=== PATIENT | female | born 1980 | race Caucasian/White ===

== ENCOUNTER → 2016-07-01 | Day surgery (SDC) | payer OTHER ==
[~2016-07-01] MED LIST: ALPRAZolam 0.25 MG TAB ONE; BACITRACIN OINT 1 EACH PACKET TOPICAL ONE; LIDOCAINE 1% INJ 10MG/ML (20 ML MDV) ONE; SODIUM BICARB 4% 5 ML VIAL (0.48 MEQ/ML) ONE
--- NOTE | 2016-07-01 15:42 | USB ---
EXAMINATION TYPE: US biopsy breast VAD LT, US breast aspiration single LT MG diagnostic mammo LT wo CAD, DATE OF EXAM: 07/01/2016 1:14 PM CLINICAL HISTORY: 35-year-old female with palpable left breast mass. TECHNIQUE: Ultrasound guided aspiration and core biopsy of left breast lesion. COMPARISON: Outside ultrasound 04/07/2016 FINDINGS: The procedure of ultrasound guided aspiration and core biopsy was explained to the patient. Benefits, alternatives, and risks were discussed. An informed consent was then obtained. The patient was placed in supine positioning for imaging and for the procedure. The overlying skin was prepped and draped in usual sterile fashion. Lidocaine buffered with bicarbonate was used as anesthetic into the skin and subcutaneous tissue up to area of concern in the 4:00 left breast. Under ultrasound guidance, a 18-gauge spinal needle was advanced into the lesion and aspiration yielded 0.75 mL of thick whitish material. This was labeled and sent to the lab for analysis. Subsequently, as residual lesion remained after the aspiration, decision was made to proceed with core biopsy. Under ultrasound guidance, a 13-gauge vacuum- assisted mammotome a leak biopsy gun was used to obtain 10 core samples. Following this, a coil clip was left in the lesion. Most if not all of the lesion was removed with the multiple biopsies. The patient tolerated the procedure well without any immediate complication. The patient was kept in the radiology department for short stay after the procedure and then discharged home in stable condition. Postprocedure mammogram shows coil clip in place but closer to the 6:00 position. IMPRESSION: Successful, uncomplicated ultrasound guided aspiration followed by core biopsy of palpable 4:00 left breast mass, full pathology results to follow. A galactocele is in the differential. Pathology Results: Benign BREAST, LEFT, ASPIRATE: FOAMY MACROPHAGES, DEGENERATED CELLULAR MATERIAL AND DEGENERATED EPITHELIAL CELLS WITH APOCRINE-LIKE FEATURES CONSISTENT WITH CYST CONTENTS. BREAST, LEFT, CORE BIOPSY: BENIGN BREAST SHOWING FEATURES CONSISTENT WITH RUPTURED CYST WALL AND ASSOCIATED PROMINENT HISTIOCYTE AND FOREIGN BODY GIANT CELL REACTION, CHRONIC INFLAMMATION, FIBROSIS AND PIGMENTED NON-REFRACTILE MATERIAL. Recommendation Follow up ultrasound of the left breast in 6 months. JEREMY
== END ==
LOC: RADUSWWP 11:46
PROVIDERS: ATTEND Surgery
DX: N61.0 Mastitis without abscess (principal); N60.32 Fibrosclerosis of left breast; N64.9 Disorder of breast, unspecified
CPT/HCPCS: 88305; 88173; 76942; 19000; 19083; G0206; A4648; J2001

== ENCOUNTER → 2016-10-18 | Outpatient (CLI) | payer OTHER ==
[2016-10-18 14:48] VITALS: BP 151/75; PULSE 60; TEMP 98.1; BMI 29.1
--- NOTE | 2016-10-18 16:31 | P.HPBAR ---
Bariatric H&P - History & Physicial H&P Date: 10/18/16 History & Physicial: Visit/CC: initial clinic visit Patient initial contact: Initial weight: Initial weight in pounds: Height: 5 ft 4 in Initial BMI: Last weight: Current weight: 108.545 kg Current weight in pounds: 239.30 Current BMI: 29.1 [place] body weight (based on NIH guidelines): 81.647 kg Excess body weight loss: The patient is a 36 year-old F who presents for Bariatric Assessment. The patient presents today for sleeve gastrectomy consultation. She's had issues with morbid obesity most of her life. Her current BMI is 41. She has complaints of GERD. And arthritis. Past Medical History Past Medical History: GERD/Reflux, Hypertension History of Any Multi-Drug Resistant Organisms: None Reported Past Surgical History: Breast Surgery, Section, Cholecystectomy, Orthopedic Surgery, Tubal Ligation Additional Past Surgical History / Comment(s): bilateral breast biopsies right ankle surgery c section x 3 Past Anesthesia/Blood Transfusion Reactions: No Reported Reaction Past Psychological History: No Psychological Hx Reported Smoking Status: Former smoker Past Alcohol Use History: None Reported Additional Past Alcohol Use History / Comment(s): quit smoking four years ago Past Drug Use History: None Reported Surgical - Exam Vital Signs Temp Pulse BP 98.1 F 60 151/75 10/18/16 14:42 10/18/16 14:42 10/18/16 14:42 - General well developed, no distress - Eyes PERRL - ENT normal pinna - Neck no masses - Respiratory normal expansion - Cardiovascular Rhythm: regular - Abdomen Abdomen: soft, non tender Bariatric Assessment & Plan Plan: I also discussed with patient has been regarding sleeve gastrectomy. I went over the risks and benefits of procedure. The patient wishes to try some weight loss medication. She will trial Tenuate. She will follow-up in one month for recheck. Bariatric Checklist Checklist: Plan: Checklist: EGD: 1. Hiatal hernia: 2. H. Pylori: HgbA1c: Vitamin D: Smoking: Former smoker Primary care physician referral: dr chavis Psychiatry clearance: Cardiology clearance: Sleep study: Diet journal: VTE risk score: VTE risk level: Rehab needs at discharge:
== END ==
LOC: BARWHC3 13:54
PROVIDERS: ATTEND Surgery
DX: E66.01 Morbid (severe) obesity due to excess calories (principal); Z98.84 Bariatric surgery status; Z87.891 Personal history of nicotine dependence
CPT/HCPCS: 99211

== ENCOUNTER 2016-11-05 11:58 | Day surgery (SDC) | payer OTHER ==
[2016-11-04 11:33] VITALS: BMI 39.4
[~2016-11-05 11:58] MED LIST changes: -ALPRAZolam 0.25 MG TAB ONE; -BACITRACIN OINT 1 EACH PACKET TOPICAL ONE; +LACTATED RINGERS 1,000 ML IV SCH; -LIDOCAINE 1% INJ 10MG/ML (20 ML MDV) ONE; -SODIUM BICARB 4% 5 ML VIAL (0.48 MEQ/ML) ONE
[2016-11-05 12:53] VITALS: RESP 18; TEMP 98.8
[2016-11-05] MEDS ORDERED: LIDOCAINE 1% INJ 10MG/ML (20 ML MDV) ONE (13:10)
[2016-11-05] MEDS ORDERED: GLYCOPYRROLATE 0.2 MG/ML 2 ML VIAL ONE (13:10)
[2016-11-05] MEDS ORDERED: PROPOFOL 10 MG/ML 20 ML VIAL IV ONE (13:10)
--- NOTE | 2016-11-05 13:12 | P.GSHP ---
History of Present Illness H&P Date: 11/05/16 Chief Complaint: GERD [id number] female who presents today for EGD. Patient's had issues with GERD. She's also had issues with morbid obesity. Her BMI is 40. Past Medical History Past Medical History: GERD/Reflux, Hypertension History of Any Multi-Drug Resistant Organisms: None Reported Past Surgical History: Breast Surgery, Section, Cholecystectomy, Orthopedic Surgery, Tubal Ligation Additional Past Surgical History / Comment(s): bilateral breast biopsies right ankle surgery c section x 3 Past Anesthesia/Blood Transfusion Reactions: No Reported Reaction Past Psychological History: No Psychological Hx Reported Smoking Status: Former smoker Past Alcohol Use History: None Reported Additional Past Alcohol Use History / Comment(s): quit smoking four years ago Past Drug Use History: None Reported - Past Family History Mother Family Medical History: No Reported History Medications and Allergies Home Medications Medication Instructions Recorded Confirmed Type Atenolol [Tenormin] 1 tab PO DAILY 10/18/16 11/05/16 History Allergies Allergy/AdvReac Type Severity Reaction Status Date / Time metoclopramide [From Reglan] Allergy Rash/Hives Verified 11/05/16 12:42 omeprazole Allergy Swelling Verified 11/05/16 12:42 Penicillins Allergy Rash/Hives Verified 11/05/16 12:42 sulfamethoxazole Allergy Rash/Hives Verified 11/05/16 12:42 [From Bactrim] trimethoprim [From Bactrim] Allergy Rash/Hives Verified 11/05/16 12:42 Surgical - Exam Vital Signs Temp Pulse Resp BP Pulse Ox 98.8 F 83 18 113/82 97 11/05/16 12:51 11/05/16 12:51 11/05/16 12:51 11/05/16 12:51 11/05/16 12:51 - General well developed, no distress - Eyes PERRL - ENT normal pinna - Neck no masses - Respiratory normal expansion - Cardiovascular Rhythm: regular - Abdomen Abdomen: soft, non tender Assessment and Plan Plan: GERD. We'll perform EGD.
--- NOTE | 2016-11-05 13:20 | P.OP ---
Date of Procedure: 11/05/16 Preoperative Diagnosis: GERD Postoperative Diagnosis: Mild antral gastritis Mild esophagitis Procedure(s) Performed: EGD Implants: Anesthesia: MAC Surgeon: Helder Allen Pathology: other (Antrum, esophagus) Condition: stable Disposition: PACU Indications for Procedure: Operative Findings: Description of Procedure: A shunt placed on the endoscopy table in the lateral position. She received IV sedation. The gastroscope some placed oropharynx passed in the esophagus and stomach. Scope then placed through the pylorus. The first and second portion of duodenum appeared normal. Scope was then brought back the antrum and this appeared mildly inflamed. A biopsies performed. Scope was unretroflexed and remainder stomach appeared normal. The GE junction is a 47 is. There was a minimal hiatal hernia. The distal esophagus. 5 inflamed a biopsies performed. The proximal esophagus appeared normal. Scope was withdrawn for patient.
[2016-11-05 13:41] VITALS: BP 113/74; PULSE 78
== END 2016-11-05 14:05 | disposition home or self-care (01) ==
LOC: ORWHC2ENDO 11:58
PROVIDERS: ATTEND Surgery
DX: K29.50 Unspecified chronic gastritis without bleeding (principal); B96.81 Helicobacter pylori [H. pylori] as the cause of diseases classified elsewhere; K21.0 Gastro-esophageal reflux disease with esophagitis; K20.0 Eosinophilic esophagitis; K44.9 Diaphragmatic hernia without obstruction or gangrene; I10 Essential (primary) hypertension; E66.01 Morbid (severe) obesity due to excess calories; Z68.41 Body mass index [BMI] 40.0-44.9, adult; Z87.891 Personal history of nicotine dependence; Z88.0 Allergy status to penicillin; Z88.2 Allergy status to sulfonamides; Z88.8 Allergy status to other drugs, medicaments and biological substances
CPT/HCPCS: 81025; 88305; 88342; 43239; J2001; J2704

== ENCOUNTER → 2016-11-15 | Outpatient (CLI) | payer OTHER ==
[2016-11-15 14:35] VITALS: BP 120/86; PULSE 92; RESP 14; TEMP 98.8; BMI 40.0
--- NOTE | 2016-11-15 14:37 | P.HPBAR ---
Bariatric H&P - History & Physicial H&P Date: 11/15/16 History & Physicial: Visit/CC: pre surgical visit, Patient initial contact: Initial weight: 108.545 kg Initial weight in pounds: 239.30 Height: 5 ft 4 in Initial BMI: 41.1 Last weight: Current weight: 105.778 kg Current weight in pounds: 233.20 Current BMI: 40.0 [place] body weight (based on NIH guidelines): 54.431 kg Excess body weight loss: 5.1% The patient is a 36 year-old F who presents for Bariatric Assessment. Patient presents for bariatric follow-up. Patient has been on 10 units this month. She denies any significant side effects from medication. She is also present 6 pounds since her last visit. She's had some minimal GERD which has improved while taking Tums when necessary. Past Medical History Past Medical History: GERD/Reflux, Hypertension History of Any Multi-Drug Resistant Organisms: None Reported Past Surgical History: Breast Surgery, Section, Cholecystectomy, Orthopedic Surgery, Tubal Ligation Additional Past Surgical History / Comment(s): bilateral breast biopsies right ankle surgery c section x 3 Past Anesthesia/Blood Transfusion Reactions: No Reported Reaction Past Psychological History: No Psychological Hx Reported Smoking Status: Former smoker Past Alcohol Use History: None Reported Additional Past Alcohol Use History / Comment(s): quit smoking four years ago Past Drug Use History: None Reported - Past Family History Mother Family Medical History: No Reported History Surgical - Exam Vital Signs Temp Pulse Resp BP 98.8 F 92 14 120/86 11/15/16 14:25 11/15/16 14:25 11/15/16 14:25 11/15/16 14:25 - General well developed, no distress - Eyes PERRL - Neck no masses - Cardiovascular Rhythm: regular - Abdomen Abdomen: soft, non tender Bariatric Assessment & Plan Plan: Morbid obesity. Patient has been taking Tenuate. Her Tenuate will be reordered for another 30 days. She'll follow-up in 2 months. Bariatric Checklist Checklist: Plan: Checklist: EGD: 1. Hiatal hernia: 2. H. Pylori: HgbA1c: Vitamin D: Smoking: Former smoker Primary care physician referral: dr chavis Psychiatry clearance: Cardiology clearance: Sleep study: Diet journal: VTE risk score: VTE risk level: Rehab needs at discharge:
== END ==
LOC: BARWHC3 13:53
PROVIDERS: ATTEND Surgery
DX: Z48.815 Encounter for surgical aftercare following surgery on the digestive system (principal); E66.01 Morbid (severe) obesity due to excess calories; Z87.891 Personal history of nicotine dependence; Z98.84 Bariatric surgery status
CPT/HCPCS: 99211

== ENCOUNTER → 2017-02-07 | Outpatient (CLI) | payer OTHER ==
[2017-02-07 14:01] VITALS: BP 142/94; PULSE 84; RESP 20; TEMP 98.4; BMI 38.0
--- NOTE | 2017-02-07 14:19 | P.HPBAR ---
Bariatric H&P - History & Physicial H&P Date: 02/07/17 History & Physicial: Visit/CC: pursuing sleeve Patient initial contact: Initial weight: 108.545 kg Initial weight in pounds: 239.30 Height: 5 ft 4 in Initial BMI: 41.1 Last weight: Current weight: 100.698 kg Current weight in pounds: 222.00 Current BMI: 38.0 [place] body weight (based on NIH guidelines): 54.431 kg Excess body weight loss: 14.5% The patient is a 36 year-old F who presents for Bariatric Assessment. Patient presents today for preoperative consultation or gastric sleeve. She has lost approximately 17 pounds since starting Tenuate. She has lost 11 pounds since her visit 2 months ago. She has not taken her medications for H. pylori secondary to ALLERGIC reaction to omeprazole. Past Medical History Past Medical History: GERD/Reflux, Hypertension Additional Past Medical History / Comment(s): EGD October 2016 showed H Pylori History of Any Multi-Drug Resistant Organisms: None Reported Past Surgical History: Breast Surgery, Section, Cholecystectomy, Orthopedic Surgery, Tubal Ligation Additional Past Surgical History / Comment(s): bilateral breast biopsies right ankle surgery c section x 3 Past Anesthesia/Blood Transfusion Reactions: No Reported Reaction Past Psychological History: No Psychological Hx Reported Smoking Status: Former smoker Past Alcohol Use History: None Reported Additional Past Alcohol Use History / Comment(s): quit smoking four years ago Past Drug Use History: None Reported - Past Family History Mother Family Medical History: No Reported History Surgical - Exam Vital Signs Temp Pulse Resp BP 98.4 F 84 20 142/94 02/07/17 13:55 02/07/17 13:55 02/07/17 13:55 02/07/17 13:55 - General well developed, no distress - Abdomen Abdomen: soft, non tender Bariatric Assessment & Plan Plan: Morbid obesity with BMI 38. Patient will be authorized for sleeve gastrectomy.. Patient will start Biaxin and Pepcid for treatment of H. pylori. She will follow-up in 8 weeks. Bariatric Checklist Checklist: Plan: Checklist: EGD: 1. Hiatal hernia: 2. H. Pylori: HgbA1c: Vitamin D: Smoking: Former smoker Primary care physician referral: dr chavis Psychiatry clearance: Cardiology clearance: Sleep study: Diet journal: VTE risk score: VTE risk level: Rehab needs at discharge:
== END | disposition home or self-care (01) ==
LOC: BARWHC3 13:16
PROVIDERS: ATTEND Surgery
DX: Z48.815 Encounter for surgical aftercare following surgery on the digestive system (principal); Z98.84 Bariatric surgery status; E66.01 Morbid (severe) obesity due to excess calories; Z68.38 Body mass index [BMI] 38.0-38.9, adult
CPT/HCPCS: 99211

== ENCOUNTER → 2017-05-30 | Outpatient (CLI) | payer OTHER ==
[2017-05-30 14:14] VITALS: BMI 40.1
== END | disposition home or self-care (01) ==
LOC: BARWHC3 08:48
PROVIDERS: ATTEND Surgery
DX: E66.01 Morbid (severe) obesity due to excess calories (principal)
CPT/HCPCS: 83013; 97804

== ENCOUNTER 2017-07-05 06:17 | Inpatient (IN) | payer OTHER ==
[~2017-07-05 06:17] MED LIST changes: +DEXAMETHASONE SOD PHOSPHATE 10 MG/ML 1 ML VIAL IV ONE; +ENOXAPARIN 40 MG/0.4 ML SYRINGE SQ ONE; -LACTATED RINGERS 1,000 ML IV SCH; +LIDOCAINE 1% 20 ML VIAL (10MG/ML) FOR IV START INTRADERMA PRN; +ONDANSETRON 4 MG/2 ML VIAL IVP ONE; +SCOPOLAMINE 1.5MG/72HR PATCH TRANSDERM ONE; +ceFAZolin IN SWFI 2 GM/20 ML SYRINGE IVP ONE
[2017-07-05] MEDS: LACTATED RINGERS 1,000 ML IV SCH (06:53)
[2017-07-05] MEDS ORDERED: MIDAZOLAM 2 MG/2 ML VIAL IVP ONE (07:06)
[2017-07-05] MEDS ORDERED: METHYLENE BLUE IRRIGATION ONE ×2 (07:48)
[2017-07-05] MEDS ORDERED: WATER IRRIGATION ONE ×2 (07:48)
[2017-07-05] MEDS ORDERED: DEXTROSE 5% IRRIGATION ONE ×2 (07:48)
--- NOTE | 2017-07-05 07:48 | P.GSHP ---
History of Present Illness H&P Date: 07/05/17 Chief Complaint: Morbid Obesity, BMI 39 Is a 36-year-old female who presents today for laparoscopic sleeve gastrectomy. Patient has had lifetime problems obesity. Her BMI is 39. Patient is where the surgery including conversion to open procedure and injury to the stomach liver spleen vagotomy dysphagia recurrent GERD symptoms as well as issues of gastric staple line such as bleeding, scarring and Past Medical History Past Medical History: GERD/Reflux, Hypertension Additional Past Medical History / Comment(s): Hx H Pylori History of Any Multi-Drug Resistant Organisms: None Reported Past Surgical History: Breast Surgery, Section, Cholecystectomy, Orthopedic Surgery, Tubal Ligation Additional Past Surgical History / Comment(s): bilateral breast biopsies,right ankle surgery,c section x 3 Past Anesthesia/Blood Transfusion Reactions: No Reported Reaction Additional Past Anesthesia/Blood Transfusion Reaction / Comment(s): no hx blood transfusion Smoking Status: Former smoker - Past Family History Mother Family Medical History: No Reported History Additional Family Medical History / Comment(s): hemochromatosis Medications and Allergies Home Medications Medication Instructions Recorded Confirmed Type ALPRAZolam [Xanax] 0.5 mg PO TID PRN 05/16/17 07/05/17 History Oxymetazoline 0.05% Nasl [place] 2 spray EA NOSTRIL BID 06/28/17 07/05/17 History [Afrin 0.05% Nasal [place]] Fluticasone Nasal [place] [Flonase 2 spr EA NOSTRIL DAILY 07/05/17 07/05/17 History Nasal [place]] Allergies Allergy/AdvReac Type Severity Reaction Status Date / Time metoclopramide [From Reglan] Allergy Rash/Hives Verified 07/05/17 06:35 omeprazole Allergy Swelling Verified 07/05/17 06:35 Penicillins Allergy Rash/Hives Verified 07/05/17 06:35 sulfamethoxazole Allergy Rash/Hives Verified 07/05/17 06:35 [From Bactrim] trimethoprim [From Bactrim] Allergy Rash/Hives Verified 07/05/17 06:35 Surgical - Exam Vital Signs Temp Pulse Resp BP Pulse Ox 98.7 F 96 20 124/90 98 07/05/17 06:50 07/05/17 06:50 07/05/17 06:50 07/05/17 06:50 01/23/18 06:50 - General well developed, no distress - Eyes PERRL - ENT normal pinna, normal nares - Neck no masses - Respiratory normal expansion - Cardiovascular Rhythm: regular - Abdomen Abdomen: soft, non tender Assessment and Plan Assessment: Morbid Obesity with BMI 39. Patient will undergo laparoscopic sleeve gastrectomy.
[2017-07-05] MEDS ORDERED: NEOSTIGMINE 1 MG/ML 10 ML VIAL ONE (07:57)
[2017-07-05] MEDS ORDERED: ROCURONIUM BROMIDE 10 MG/ML 10 ML VIAL IV ONE (07:57)
[2017-07-05] MEDS ORDERED: PROPOFOL 10 MG/ML 20 ML VIAL IV ONE ×2 (07:57)
[2017-07-05] MEDS ORDERED: MIDAZOLAM 2 MG/2 ML VIAL ONE (07:57)
[2017-07-05] MEDS ORDERED: fentaNYL (PF) 50 MCG/ML 2 ML AMP ONE (07:57)
[2017-07-05] MEDS ORDERED: GLYCOPYRROLATE 0.2 MG/ML 2 ML VIAL ONE (07:57)
[2017-07-05] MEDS ORDERED: LIDOCAINE 1% INJ 10MG/ML (20 ML MDV) ONE (07:57)
[2017-07-05] MEDS ORDERED: HYDROmorphone (PF) 1 MG/ML ONE (07:57)
[2017-07-05] MEDS ORDERED: BUPIVACAINE (PF) 0.25% 30 ML VIAL SQ ONE (08:26)
[2017-07-05] MEDS ORDERED: LACTATED RINGERS 1,000 ML IV ONE (08:44)
[2017-07-05] MEDS ORDERED: NALOXONE 0.4 MG/ML 1 ML VIAL IV PRN (09:22)
--- NOTE | 2017-07-05 09:43 | P.OP ---
Date of Procedure: 07/05/17 Preoperative Diagnosis: Morbid obesity, BMI 39 Postoperative Diagnosis: Morbid obesity Procedure(s) Performed: Laparoscopic sleeve gastrectomy Laparoscopic repair of hiatal hernia Anesthesia: JANA Surgeon: Helder Allen Estimated Blood Loss (ml): 10 Pathology: other (Stomach) Condition: stable Disposition: PACU Description of Procedure: The patient was placed on the operating room table in the supine position. She received general anesthesia and then was placed in dorsal lithotomy position. Her abdomen was prepped and draped in sterile fashion. The skin incision sites were anesthetized 1% local Xylocaine. And then the skin was incised with an 11 blade in the left lateral position. Using a blade less trocar under direct visualization the peritoneal cavity was entered. The abdomen was insufflated and then a 5 mm laparoscope was placed into the peritoneal cavity. A 5 mm trocar was placed in the right epigastric, and right lateral position. A 15 mm trocar was placed in the supra-umbilical position and another 5 mm trocar was placed in the left lateral position. The left lateral lobe of the liver was retracted. The stomach was visualized. The greater curvature of the stomach was then dissected using the Harmonic scissors. The dissection occurred approximately 5 cm from the pylorus to the level of the left elmira. There was a hiatal hernia seen. The left and right elmira was then dissected using Harmonic scissors and then the crural defect was closed using 2-0 Ethibond suture. At this point a 40-Israeli bougie dilator was placed the oropharynx and passed into the esophagus and into the stomach by the ROLLER INSPECTOR. The sleeve gastrectomy was performed by using the powered echelon stapler with a seam guard buttress material. Sequential firings of the stapler were performed. The gastric remnant was then brought out through the 15 mm trocar site. The dilator was withdrawn. And a orogastric tube was replaced into the stomach. The stomach was insufflated with 200 mL of methylene blue normal saline. There was no evidence of extravasation. The abdomen was irrigated there is no bleeding seen. The Ruslan-Tim device was used to close the 15 mm trocar with 0 Vicryl. Skin was closed with interrupted 3-0 Monocryl sutures once the trochars withdrawn. Dermabond dressing was applied. Patient was sent to recovery in stable condition.
[2017-07-05] MEDS: diphenhydrAMINE 50 MG/ML 1 ML VIAL IVP ONE ×2 (09:45→10:51)
[2017-07-05] MEDS: HYDROmorphone 0.5 MG/0.5 ML SYRINGE IVP PRN ×5 (09:55→11:40)
[2017-07-05] MEDS: KETOROLAC 30 MG/ML 1 ML VIAL IVP SCH ×2 (11:17→20:10)
[2017-07-05] MEDS: HYDROmorphone 4 MG/ML 1 ML SYRINGE IVP ONE ×3 (12:18→13:40)
[2017-07-05] MEDS: HYDROmorphone 2 MG/ML 1 ML SYRINGE IVP PRN ×4 (14:04→22:17)
[2017-07-05] MEDS: ONDANSETRON 4 MG/2 ML VIAL IVP PRN (14:42)
[2017-07-05] MEDS: 0.9% NACL WITH KCL 20 MEQ/L 1,000 ML IV SCH ×2 (15:44→22:22)
[2017-07-05] MEDS: diphenhydrAMINE 50 MG/ML 1 ML VIAL IVP PRN ×2 (16:11→22:19)
[2017-07-05] MEDS: ALBUTEROL NEBULIZED 2.5 MG/3 ML INHALATION SCH ×3 (16:18→20:37)
[2017-07-05 17:23] VITALS: BMI 39.0
[2017-07-05] MEDS ORDERED: ALPRAZolam 0.5 MG TAB PO PRN (21:47)
[2017-07-05 22:53] LABS: ALT 110 U/L (9-52); AST 107 U/L (14-36); Alkaline Phosphatase 47 U/L (38-126); Anion Gap 13 mmol/L; Blood Urea Nitrogen 20 mg/dL (7-17); Calcium 8.6 mg/dL (8.4-10.2); Carbon Dioxide 24 mmol/L (22-30); Chloride 104 mmol/L (98-107); Glucose 113 mg/dL (74-99); Sodium 141 mmol/L (137-145); Total Bilirubin 0.4 mg/dL (0.2-1.3); Total Protein 6.5 g/dL (6.3-8.2)
[2017-07-06] MEDS ORDERED: HYDROmorphone 2 MG/ML 1 ML SYRINGE ONE
[2017-07-06] MEDS ORDERED: KETOROLAC 30 MG/ML 1 ML VIAL ONE
[2017-07-06 04:25] LABS: Potassium 4.1 mmol/L (3.5-5.1)
[2017-07-06] MEDS: HYDROmorphone 2 MG/ML 1 ML SYRINGE IVP PRN ×3 (04:41→14:45)
[2017-07-06] MEDS: diphenhydrAMINE 50 MG/ML 1 ML VIAL IVP PRN (04:42)
[2017-07-06] MEDS: 0.9% NACL WITH KCL 20 MEQ/L 1,000 ML IV SCH (04:46)
[2017-07-06] MEDS: KETOROLAC 30 MG/ML 1 ML VIAL IVP SCH ×4 (05:06→19:16)
[2017-07-06] MEDS: ALBUTEROL NEBULIZED 2.5 MG/3 ML INHALATION SCH ×4 (07:51→20:02)
[2017-07-06] MEDS ORDERED: 0.9% NACL WITH KCL 20 MEQ/L 1,000 ML IV SCH (08:00)
[2017-07-06 08:15] LABS: Anion Gap 9 mmol/L; Blood Urea Nitrogen 17 mg/dL (7-17); Calcium 8.3 mg/dL (8.4-10.2); Carbon Dioxide 25 mmol/L (22-30); Chloride 107 mmol/L (98-107); Magnesium 1.7 mg/dL (1.6-2.3); Phosphorus 3.4 mg/dL (2.5-4.5); Potassium 4.1 mmol/L (3.5-5.1); Sodium 141 mmol/L (137-145)
--- NOTE | 2017-07-06 08:44 | CONS ---
CONSULTATION DATE OF SERVICE: 07/05/2017. REASON FOR CONSULTATION: Advice regarding hypertension and multiple other medical issues requested by Dr. Allen. HISTORY OF PRESENT ILLNESS: This is a 36-year-old woman with a past medical history of GERD, hypertension, history of H-pylori being followed by Dr. Joseph in the outpatient setting. Underwent laparoscopic sleeve gastrectomy as well as laparoscopic repair of hiatal hernia by Dr. Allen. There is no history of fever or rigors. No history of headache, loss of consciousness. No history of chest pain, palpitations, or melena at this time. PAST MEDICAL HISTORY: History of GERD, hypertension, history H pylori, history of breast surgery, history of cholecystectomy, history of anxiety. MEDICATIONS: 1. Oxymetazoline nasal spray 2 sprays b.i.d. 2. Flonase 2 sprays daily. 3. Xanax 0.5 t.i.d. p.r.n. ALLERGIES: REGLAN, OMEPRAZOLE, PENICILLINS, BACTRIM. FAMILY HISTORY: History of hypertension, hyperlipidemia, history of hemochromatosis. SOCIAL HISTORY: Previous history of smoking. No history of alcohol intake. REVIEW OF SYSTEMS: ENT: No diminished hearing or vision. CARDIOVASCULAR: As mentioned earlier. RESPIRATORY: As mentioned earlier. GI: No nausea. : No dysuria. NERVOUS SYSTEM: No numbness or weakness. ALLERGY/IMMUNOLOGY: No asthma or hayfever. MUSCULOSKELETAL: As mentioned earlier. HEMATOLOGY/ONCOLOGY: No history of anemia. ENDOCRINE: No history of diabetes or hypothyroidism. CONSTITUTIONAL: As mentioned earlier. DERMATOLOGY: As mentioned earlier. PSYCHIATRY: As mentioned earlier. PHYSICAL EXAM: Patient is alert and oriented x3. Pulse is 99, blood pressure 150/90, respiration 18, temperature 98.7, pulse ox 97% on 2 L. HEENT: Oral mucosa moist. Neck is no jugular venous distention. No carotid bruit. No lymph node enlargement. CARDIOVASCULAR SYSTEM: S1, S1. No S3, no S4. RESPIRATORY: Breath sounds diminished at the bases. No rhonchi. No crackles. ABDOMEN: Soft, obese, nontender. Status post surgery. No mass palpable. LEGS: No edema, no swelling.. NERVOUS SYSTEM: Higher functions as mentioned earlier. Moves all 4 limbs, no focal motor deficits. LYMPHATICS: No lymph node enlargement in the neck or axillae. SKIN: No ulcer, rash, bleeding. SOCIAL HISTORY: The patient is complaining of chest pain and reported chest pain as well as shoulder pain also, status post surgery. LABS: Not available. ASSESSMENT: 1. Status post laparoscopic sleeve gastrectomy. 2. History of gastroesophageal reflux disease. 3. Hypertension. 5. History of section. 6. History of cholecystectomy. 7. History of anxiety. 8. Remote history of nicotine dependence. 9. FULL CODE. RECOMMENDATION: In this 36-year-old woman who presented with multiple complex medical issues, will monitor the patient closely. Continue with the current management and symptomatic treatment. Otherwise, I would also recommend DVT prophylaxis, incentive spirometry. Resume the home medications including Lasix 80. Prognosis guarded because of multiple complex medical issues. Further recommendations to follow. MMODL / IJN: [id number] / MTDD
[2017-07-06 08:51] LABS: HCT 33.6 % (34.0-46.0); MCH 31.3 pg (25.0-35.0); MCHC 32.7 g/dL (31.0-37.0); MCV 95.7 fL (80.0-100.0); Mean Platelet Volume 7.6; Platelet Count 239 k/uL (150-450); RBC 3.51 m/uL (3.80-5.40); RDW 12.9 % (11.5-15.5); WBC 8.8 k/uL (3.8-10.6)
[2017-07-06] MEDS ORDERED: OXYMETAZOLINE 0.05% NASL SPRAY 1 SPRAY BOTTLE EA NOSTRIL SCH (09:00)
[2017-07-06] MEDS ORDERED: OXYMETAZOLINE 0.05% NASL SPRAY 1 SPRAY BOTTLE EA NOSTRIL PRN (09:00)
[2017-07-06] MEDS ORDERED: HYOSCYAMINE ORAL DROPS 1.875 MG/15 ML BOTTLE PO PRN (09:11)
--- NOTE | 2017-07-06 09:21 | P.PN ---
<Shahida Rios - Last Filed: 07/06/17 16:03> Subjective Progress Note Date: 07/06/17 36-year-old female seen and examined at bedside. Patient reports experiencing midepigastric "spasm-like feeling". Sitting up in bed talkative appears in no acute distress postop July 05 laparoscopic sleeve gastrectomy, repair of hiatal hernia for morbid obesity BMI 39 labs were reviewed sats are 96% on room air heart rate in the 90s Objective - Vital Signs Vital signs: Vital Signs Temp 97.8 F 07/06/17 02:09 Pulse 90 07/06/17 08:04 Resp 18 07/06/17 07:55 BP 150/83 07/06/17 02:09 Pulse Ox 96 07/06/17 07:55 Intake & Output 07/05/17 07/06/17 07/06/17 18:59 06:59 18:59 Intake Total 1351 1725 Output Total 10 Balance 1341 1725 Weight 103.3 kg Intake: IV 1351 Intake, IV Titration 1725 Amount 0.9% NaCl with KCl 20 Meq 1725 /l 1,000 ml @ 150 mls/hr IV .Q6H40M [facility] Rx#: [id number] Output: Estimated Blood Loss 10 Other: Voiding Method Toilet # Voids 2 - Exam Physical exam 36-year-old female sitting up in bed pleasant cooperative oriented 3 appears in no acute distress Lungs adequate air movement bilaterally on room air sats are 96% no cough noted no wheezing Heart S1-S2 audible regular denying chest pain no murmur Abdomen soft obese surgical incision sites dressings dry nondistended surgical tenderness appropriate belching not passing gas rectally states urinating no difficulty no nausea no vomiting Extremities Venodyne's on to the bilateral lower extremities - Labs CBC & Chem 7: 07/06/17 07:18 07/06/17 07:18 Labs: Abnormal Lab Results - Last 24 Hours (Table) 07/05/17 07/06/17 07/06/17 Range/Units 22:11 07:18 07:18 RBC 3.51 L (3.80-5.40) m/uL Hgb 11.0 L (11.4-16.0) gm/dL Hct 33.6 L (34.0-46.0) % BUN 20 H (7-17) mg/dL Glucose 113 H (74-99) mg/dL Calcium 8.3 L (8.4-10.2) mg/dL AST 107 H (14-36) U/L ALT 110 H (9-52) U/L Assessment and Plan Assessment: Impression Morbid obesity BMI 39 History of esophageal reflux disease Hypertension essential Postop laparoscopic sleeve gastrectomy for morbid obesity with repair of hiatal hernia done on July 05 Plan Follow-up on upper GI study pending Continue postop surgical course Pain control Dietitian consult pending Nothing by mouth diet except ice chips will address as indicated after upper GI DVT and GI prophylaxis Monitor heart rate address as indicated Progress note dictated for dr jolley The above impression and plan of care have been discussed and directed by signing physician. Shahida Rios nurse practitioner acting as scribe for signing physician. <Helder Jolley - Last Filed: 07/06/17 16:45> Objective - Vital Signs Vital signs: Vital Signs Temp 98.0 F 07/06/17 07:00 Pulse 99 07/06/17 16:29 Resp 15 07/06/17 15:38 BP 135/90 07/06/17 15:00 Pulse Ox 100 07/06/17 15:00 Intake & Output 07/05/17 07/06/17 07/06/17 18:59 06:59 18:59 Intake Total 1351 1725 1550 Output Total 10 Balance 1341 1725 1550 Weight 103.3 kg 103.3 kg Intake: IV 1351 Intake, IV Titration 1725 1350 Amount 0.9% NaCl with KCl 20 Meq 300 /l 1,000 ml @ 100 mls/hr IV .BY DURATION [facility] Rx#: [id number] 0.9% NaCl with KCl 20 Meq 1725 1050 /l 1,000 ml @ 150 mls/hr IV .Q6H40M [facility] Rx#: [id number] Oral 200 Output: Estimated Blood Loss 10 Other: Voiding Method Toilet Toilet # Voids 2 1 - Labs CBC & Chem 7: 07/06/17 07:18 07/06/17 07:18 Labs: Abnormal Lab Results - Last 24 Hours (Table) 07/05/17 07/06/17 07/06/17 Range/Units 22:11 07:18 07:18 RBC 3.51 L (3.80-5.40) m/uL Hgb 11.0 L (11.4-16.0) gm/dL Hct 33.6 L (34.0-46.0) % BUN 20 H (7-17) mg/dL Glucose 113 H (74-99) mg/dL Calcium 8.3 L (8.4-10.2) mg/dL AST 107 H (14-36) U/L ALT 110 H (9-52) U/L Assessment and Plan Plan: Patient still has some complaints of headache and poor oral intake. On exam her vital signs are stable. Her abdomen soft. Patiently discharged home tomorrow.
--- NOTE | 2017-07-06 11:08 | FL ---
EXAMINATION TYPE: FL UGI DATE OF EXAM: 07/06/2017 LIMITED UGI: CLINICAL HISTORY: Morbid Obesity and hiatal hernia, status post gastric sleeve surgery yesterday. TECHNIQUE: Limited UGI-esophagram is performed utilizing 20oz of Omnipaque 350. A total of 71 second s of fluoroscopic time was utilized during procedure. 17 spot images are saved during procedure. COMPARISON: None. FINDINGS: The patient swallowed contrast without difficulty or delay. Esophageal peristalsis and mo tility are within normal limits. There is good flow of contrast along the diaphragmatic hiatus into proximal stomach. Proximal stomach pouch is slightly more prominent than typical. There is mild to mi nimal delay in flow at proximal anastomosis of the sleeve. There is mild delay flow through sleeve wh ich otherwise is felt within normal limits.. Mild to moderate delay in flow at distal anastomosis of sleeve into duodenal sweep. Patient remains asymptomatic throughout procedure. No cinthia extravasation to suggest leak is seen. Cholecystectomy clips are incidentally noted. IMPRESSION: No evidence of leak or significant obstruction status post recent gastric sleeve surgery. No persistent hiatal hernia is evident.
[2017-07-06] MEDS ORDERED: HYDROcodone/APAP 15 ML SOLUTION PO PRN (11:10)
[2017-07-06] MEDS: ENOXAPARIN 40 MG/0.4 ML SYRINGE SQ SCH ×2 (11:11→22:40)
[2017-07-06] MEDS: PANTOPRAZOLE 40 MG/10 ML VIAL IV SCH (11:11)
[2017-07-06] MEDS: FLUTICASONE 50MCG/SPRAY NASAL 16GM EA NOSTRIL SCH (11:12)
[2017-07-06 11:20] LABS: Band Neutrophils % 1 %; Eosinophils # (M) 0.09 k/uL (0-0.7); Lymphocytes # (M) 3.34 k/uL (1.0-4.8); Monocytes # (M) 0.44 k/uL (0-1.0); Neutrophils % (M) 55 %; Nucleated Red Blood Cells 0 /100 WBC (0-0); Total Cells Counted 100
[2017-07-06] MEDS: 1: MVI, ADULT NO.4 WITH VIT K 10 ML, THIAMINE 100 MG, FOLIC ACID 1 MG, POTASSIUM CHLORID IV SCH ×12 (12:19→22:39)
[2017-07-06] MEDS: HYDROcodone/APAP 7.5-325MG 1 EACH TAB PO PRN ×2 (16:50→22:39)
--- NOTE | 2017-07-06 17:25 | PN ---
PROGRESS NOTE DATE OF SERVICE: 07/06/2017 This 36-year-old woman who was admitted after sleeve gastrectomy is improving significantly. No chest pain. No palpitations. The pain is better. The patient passed all her upper GI series. PHYSICAL EXAMINATION: Alert and oriented x3. Pulse 120, blood pressure 120/80 respiration 18, temperature 98 degrees, pulse ox 99% on 2 L. HEENT: Conjunctivae normal. NECK: No jugular venous distention. CARDIOVASCULAR SYSTEM: S1, S2 muffled. RESPIRATORY SYSTEM: Breath sounds diminished at the bases. A few rhonchi. No crackles. ABDOMEN: Soft. Status post surgery. LEGS: No edema. No swelling. NERVOUS SYSTEM: No focal deficit. LABS: WBC 8.8, hemoglobin 11. ASSESSMENT: 1. Status post laparoscopic sleeve gastrectomy. 2. History of gastroesophageal reflux disease. 3. Hypertension. 4. History of section. 5. History of cholecystectomy. 6. History of anxiety. 7. Remote history of nicotine dependence. 8. FULL CODE. RECOMMENDATIONS AND DISCUSSION: I recommend to continue current medication, continue symptomatic treatment. Incentive spirometry. DVT prophylaxis. Closely follow with Surgery. Further recommendations to follow. MMODL / IJN: [id number] /
[2017-07-06] MEDS: ONDANSETRON 4 MG/2 ML VIAL IVP PRN (19:16)
[2017-07-07] MEDS: KETOROLAC 30 MG/ML 1 ML VIAL IVP SCH ×2 (01:27→07:10)
[2017-07-07] MEDS: LACTATED RINGERS 1,000 ML IV SCH ×2 (01:27→06:10)
[2017-07-07] MEDS: 1: MVI, ADULT NO.4 WITH VIT K 10 ML, THIAMINE 100 MG, FOLIC ACID 1 MG, POTASSIUM CHLORID IV SCH ×6 (06:10)
[2017-07-07] MEDS: ONDANSETRON 4 MG/2 ML VIAL IVP PRN (07:17)
[2017-07-07] MEDS: ALBUTEROL NEBULIZED 2.5 MG/3 ML INHALATION SCH ×2 (08:00→11:34)
[2017-07-07 08:50] VITALS: BP 128/87; PULSE 93; RESP 14; TEMP 98.2
[2017-07-07] MEDS: PANTOPRAZOLE 40 MG/10 ML VIAL IV SCH (08:53)
[2017-07-07] MEDS: ENOXAPARIN 40 MG/0.4 ML SYRINGE SQ SCH (08:53)
[2017-07-07] MEDS: FLUTICASONE 50MCG/SPRAY NASAL 16GM EA NOSTRIL SCH (08:54)
--- NOTE | 2017-07-07 10:15 | P.DS ---
Providers Date of admission: 07/05/17 06:17 Expected date of discharge: 07/07/17 Attending physician: Helder Allen Consults: 07/05/17 09:22 Consult Physician Routine Consulting Provider: Roderick Butt Consult Reason/Comments: medical management Do you want consulting provider notified?: Yes Primary care physician: SHANDA Hospital Course: 36-year-old female admitted on the day of admission to undergo an elective laparoscopic sleeve gastrectomy for morbid obesity BMI 39 with a repair of a hiatal hernia was ambulatory on the unit. Medication effective for pain control surgical incisions no evidence of redness abdomen soft nontender no nausea no vomiting tolerating a bariatric clear diet anxious to be discharged home afebrile sats on room air 99% patient was felt to be hemodynamically stable and appropriate proceed with a discharge to home Impression Morbid obesity BMI 39 History of esophageal reflux disease Hypertension essential Postop laparoscopic sleeve gastrectomy for morbid obesity with repair of hiatal hernia done on July 05 The above impression and plan of care have been discussed and directed by signing physician. Shahida Rios nurse practitioner acting as scribe for signing physician. Plan - Discharge Summary Discharge Rx Participant: Yes New Discharge Prescriptions: New Bisacodyl [Dulcolax] 5 mg PO DAILY PRN #10 tablet.dr PRN Reason: Constipation Ondansetron Odt [Zofran Odt] 4 mg PO Q8HR PRN #9 tab PRN Reason: Nausea Simethicone 40 mg/0.6 ml Drops [Mylicon Drops] 40 mg PO PCHS PRN #30 ml PRN Reason: Gas HYDROcodone/APAP 7.5-325MG [[place] 7.5-325] 1 each PO Q6H PRN #20 tab PRN Reason: Pain Continue ALPRAZolam [Xanax] 0.5 mg PO TID PRN PRN Reason: Anxiety Oxymetazoline 0.05% Nasl [place] [Afrin 0.05% Nasal [place]] 2 spray EA NOSTRIL BID Fluticasone Nasal [place] [Flonase Nasal [place]] 2 spr EA NOSTRIL DAILY Discharge Medication List ALPRAZolam [Xanax] 0.5 mg PO TID PRN 05/16/17 [History] Oxymetazoline 0.05% Nasl [place] [Afrin 0.05% Nasal [place]] 2 spray EA NOSTRIL BID 06/28/17 [History] Fluticasone Nasal [place] [Flonase Nasal [place]] 2 spr EA NOSTRIL DAILY 07/05/17 [ History] Bisacodyl [Dulcolax] 5 mg PO DAILY PRN #10 tablet. 07/07/17 [Rx] HYDROcodone/APAP 7.5-325MG [[place] 7.5-325] 1 each PO Q6H PRN #20 tab 07/07/17 [ Rx] Ondansetron Odt [Zofran Odt] 4 mg PO Q8HR PRN #9 tab 07/07/17 [Rx] Simethicone 40 mg/0.6 ml Drops [Mylicon Drops] 40 mg PO PCHS PRN #30 ml [Rx] Follow up Appointment(s)/Referral(s): Helder Allen MD [STAFF PHYSICIAN] - 1 Week Activity/Diet/Wound Care/Special Instructions: bariatric clear diet No tub bath for six weeks. Shower daily. No lifting over 4 pounds for the next 6 weeks.. May use ice packs to surgical site. No driving while taking narcotic for pain. Discharge Disposition: HOME SELF-CARE
[2017-07-07] MEDS: HYDROcodone/APAP 7.5-325MG 1 EACH TAB PO PRN (10:22)
--- NOTE | 2017-07-07 21:59 | PN ---
PROGRESS NOTE DATE OF SERVICE: 07/07/2017 This 36-year-old woman who was admitted with sleeve gastrectomy is improving significantly. No chest pain. No palpitations. No fever. LFTs were mildly elevated. EXAM: Alert and oriented x3. Pulse 89, blood pressure 127/70, respirations 16, temperature 98.1, pulse ox 94% on room air. HEENT: Conjunctivae normal. NECK: No jugular venous distention. CARDIOVASCULAR: S1, S2 muffled. RESPIRATORY: Breath sounds diminished in the bases. No rhonchi. No crackles. ABDOMEN: Soft, status post surgery. LEGS: No edema. NERVOUS SYSTEM: Nonfocal. LABS: WBC 8.1, hemoglobin is 11. AST, ALT noted. ASSESSMENT: 1. Status post laparoscopic sleeve gastrectomy. 2. History of gastroesophageal reflux disease. 3. Hypertension. 4. Increased AST, ALT. 5. History of section. 6. History of cholecystectomy. 7. History of anxiety. 8. Remote history of nicotine dependence. 9. FULL CODE. RECOMMENDATIONS AND DISCUSSION: Recommend to continue with current medical management and symptomatic treatment. Recommend close followup with the primary physician regarding the abnormal labs; otherwise, I discussed with the patient, who understands. Further recommendations to follow. MMODL / IJN: [id number] /
== END 2017-07-07 12:45 | disposition home or self-care (01) | DRG 621 ==
LOC: 2ORMAIN 06:17 → 3SUR 09:19
PROVIDERS: ADMIT Surgery; ATTEND Surgery
PROC: 0BQT4ZZ Repair Diaphragm, Percutaneous Endoscopic Approach (ICD-10-PCS; 2017-07-05)
PROC: 0DB64Z3 Excision of Stomach, Percutaneous Endoscopic Approach, Vertical (ICD-10-PCS; principal; 2017-07-05 08:00)
DX: E66.01 Morbid (severe) obesity due to excess calories (principal); F41.9 Anxiety disorder, unspecified; I10 Essential (primary) hypertension; K21.9 Gastro-esophageal reflux disease without esophagitis; K44.9 Diaphragmatic hernia without obstruction or gangrene; R07.9 Chest pain, unspecified; M25.519 Pain in unspecified shoulder; Z68.39 Body mass index [BMI] 39.0-39.9, adult; Z90.49 Acquired absence of other specified parts of digestive tract; Z87.891 Personal history of nicotine dependence; Z79.899 Other long term (current) drug therapy; Z88.1 Allergy status to other antibiotic agents; Z88.0 Allergy status to penicillin; Z88.2 Allergy status to sulfonamides; Z88.8 Allergy status to other drugs, medicaments and biological substances; Z82.49 Family history of ischemic heart disease and other diseases of the circulatory system
CPT/HCPCS: 74240; 80051; 80053; 82310; 82565; 83735; 84100; 84520; 85025; 88307; 88341; 88342; 94640; 94760; 94762

== ENCOUNTER → 2017-07-18 | Outpatient (CLI) | payer OTHER ==
[2017-07-18 14:29] VITALS: BMI 37.0
[2017-07-18 15:12] VITALS: BP 132/82; PULSE 82; TEMP 97.7
--- NOTE | 2017-07-18 15:37 | P.HPBAR ---
Bariatric H&P - History & Physicial H&P Date: 07/18/17 History & Physicial: Visit/CC: two week follow up Patient initial contact: Initial weight: 108.545 kg Initial weight in pounds: 239.30 Height: 5 ft 4 in Initial BMI: 41.1 Last weight: Current weight: 97.976 kg Current weight in pounds: 216.00 Current BMI: 37.0 [place] body weight (based on NIH guidelines): 54.431 kg Excess body weight loss: 19.5% The patient is a 36 year-old F who presents for Bariatric Assessment. Patient presents today for postoperative follow-up. She underwent sleeve gastrectomy approximately 2 weeks ago. She is doing quite well. She lost approximately 21 pounds since surgery. Past Medical History Past Medical History: GERD/Reflux, Hypertension Additional Past Medical History / Comment(s): Hx H Pylori History of Any Multi-Drug Resistant Organisms: None Reported Past Surgical History: Bariatric Surgery, Breast Surgery, Section, Cholecystectomy, Orthopedic Surgery, Tubal Ligation Additional Past Surgical History / Comment(s): bilateral breast biopsies,right ankle surgery,c section x 3 sleeve gastrectomy 07-05-17 Past Anesthesia/Blood Transfusion Reactions: No Reported Reaction Additional Past Anesthesia/Blood Transfusion Reaction / Comm: no hx blood transfusion Past Psychological History: Anxiety Smoking Status: Former smoker Past Alcohol Use History: None Reported Additional Past Alcohol Use History / Comment(s): quit smoking 2012,smoked approx >10 yrs,1ppd Past Drug Use History: None Reported - Past Family History Mother Family Medical History: No Reported History, Hyperlipidemia, Hypertension Additional Family Medical History / Comment(s): hemochromatosis Father Family Medical History: Hyperlipidemia, Myocardial Infarction ([place]) Surgical - Exam Vital Signs Temp Pulse BP 97.7 F 82 132/82 07/18/17 15:09 07/18/17 15:09 07/18/17 15:09 - General well developed, no distress - Eyes PERRL - ENT normal pinna - Neck no masses - Respiratory normal expansion - Cardiovascular Rhythm: regular - Abdomen Abdomen: soft, non tender Bariatric Assessment & Plan Plan: Status post sleeve yesterday. Patient is doing very well. She will follow-up in 2 weeks. Bariatric Checklist Checklist: Plan: Checklist: EGD: 1. Hiatal hernia: 2. H. Pylori: HgbA1c: Vitamin D: Smoking: Former smoker Primary care physician referral: dr chavis Psychiatry clearance: Cardiology clearance: Sleep study: Diet journal: VTE risk score: VTE risk level: Rehab needs at discharge:
== END | disposition home or self-care (01) ==
LOC: BARWHC3 13:55
PROVIDERS: ATTEND Surgery
DX: Z09 Encounter for follow-up examination after completed treatment for conditions other than malignant neoplasm (principal); E66.01 Morbid (severe) obesity due to excess calories; K21.9 Gastro-esophageal reflux disease without esophagitis; I10 Essential (primary) hypertension; F41.9 Anxiety disorder, unspecified; Z98.84 Bariatric surgery status; Z90.49 Acquired absence of other specified parts of digestive tract; Z98.890 Other specified postprocedural states; Z87.891 Personal history of nicotine dependence; Z68.37 Body mass index [BMI] 37.0-37.9, adult
CPT/HCPCS: 97803; G0463; 99211

== ENCOUNTER → 2017-10-31 | Outpatient (CLI) | payer OTHER ==
--- NOTE | 2017-10-31 15:35 | P.HPBAR ---
Bariatric H&P - History & Physicial H&P Date: 10/31/17 History & Physicial: Visit/CC: Patient initial contact: Initial weight: 108.545 kg Initial weight in pounds: Height: Initial BMI: Last weight: 216 Current weight: 188 Current weight in pounds: Current BMI: [place] body weight (based on NIH guidelines): Excess body weight loss: The patient is a 37 year-old F who presents for Bariatric Assessment. The patient presents today for sleeve gastrectomy follow-up. She is doing quite well. She is less another 12 pounds since her last visit. She's had some mild GERD. Past Medical History Past Medical History: GERD/Reflux, Hypertension Additional Past Medical History / Comment(s): Hx H Pylori History of Any Multi-Drug Resistant Organisms: None Reported Past Surgical History: Bariatric Surgery, Breast Surgery, Section, Cholecystectomy, Orthopedic Surgery, Tubal Ligation Additional Past Surgical History / Comment(s): bilateral breast biopsies,right ankle surgery,c section x 3 sleeve gastrectomy 07-05-17 Past Anesthesia/Blood Transfusion Reactions: No Reported Reaction Additional Past Anesthesia/Blood Transfusion Reaction / Comm: no hx blood transfusion Past Psychological History: Anxiety Smoking Status: Former smoker Past Alcohol Use History: None Reported Additional Past Alcohol Use History / Comment(s): quit smoking 2012,smoked approx >10 yrs,1ppd Past Drug Use History: None Reported - Past Family History Mother Family Medical History: No Reported History, Hyperlipidemia, Hypertension Additional Family Medical History / Comment(s): hemochromatosis Father Family Medical History: Hyperlipidemia, Myocardial Infarction ([place]) Surgical - Exam - General well developed, no distress - Eyes PERRL - Abdomen Abdomen: soft, non tender Bariatric Assessment & Plan Plan: The patient is doing well status post sleeve gastrectomy. Her GERD is minimal and will be observed. She'll follow-up in one month. Bariatric Checklist Checklist: Plan: Checklist: EGD: 1. Hiatal hernia: 2. H. Pylori: HgbA1c: Vitamin D: Smoking: Former smoker Primary care physician referral: dr chavis Psychiatry clearance: Cardiology clearance: Sleep study: Diet journal: VTE risk score: VTE risk level: Rehab needs at discharge:
[2017-10-31 15:46] VITALS: BP 128/96; PULSE 83; RESP 16; TEMP 98.1; BMI 32.2
== END | disposition home or self-care (01) ==
LOC: BARWHC3 14:55
PROVIDERS: ATTEND Surgery
DX: Z48.815 Encounter for surgical aftercare following surgery on the digestive system (principal); E66.01 Morbid (severe) obesity due to excess calories; Z98.84 Bariatric surgery status; Z87.891 Personal history of nicotine dependence; Z71.3 Dietary counseling and surveillance; Z68.32 Body mass index [BMI] 32.0-32.9, adult
CPT/HCPCS: 97803; G0463; 99211

== ENCOUNTER → 2018-07-17 | Outpatient (CLI) | payer OTHER ==
[2018-07-17 15:13] VITALS: BP 128/96; PULSE 83; RESP 16; TEMP 98.1; BMI 23.3
--- NOTE | 2018-07-17 17:41 | P.HPBAR ---
Bariatric H&P - History & Physicial H&P Date: 07/17/18 History & Physicial: Visit/CC: sleeve 1 year follow-up Patient initial contact: Initial weight: 108.545 kg Initial weight in pounds: 239.30 Height: 5 ft 4 in Initial BMI: 41.1 Last weight: Current weight: 61.689 kg Current weight in pounds: 136.00 Current BMI: 23.3 [place] body weight (based on NIH guidelines): 54.431 kg Excess body weight loss: 86.5% The patient is a 37 year-old F who presents for Bariatric Assessment. Patient presents today for sleeve gastrectomy follow-up. She's had some mild GERD. She has lost 50 pounds her last visit. She lost approximately 103 pounds since surgery. Past Medical History Past Medical History: GERD/Reflux, Hypertension Additional Past Medical History / Comment(s): Hx H Pylori History of Any Multi-Drug Resistant Organisms: None Reported Past Surgical History: Bariatric Surgery, Breast Surgery, Section, Cholecystectomy, Orthopedic Surgery, Tubal Ligation Additional Past Surgical History / Comment(s): bilateral breast biopsies,right ankle surgery,c section x 3 sleeve gastrectomy 07-05-17 Past Anesthesia/Blood Transfusion Reactions: No Reported Reaction Additional Past Anesthesia/Blood Transfusion Reaction / Comm: no hx blood transfusion Smoking Status: Former smoker - Past Family History Mother Family Medical History: No Reported History, Hyperlipidemia, Hypertension Additional Family Medical History / Comment(s): hemochromatosis Father Family Medical History: Hyperlipidemia, Myocardial Infarction ([place]) Surgical - Exam Vital Signs Temp Pulse Resp BP 98.1 F 83 16 128/96 07/17/18 15:11 07/17/18 15:11 07/17/18 15:11 07/17/18 15:11 - General well developed, well nourished, no distress - Abdomen Abdomen: soft, non tender Bariatric Assessment & Plan Plan: Status post sleeve gastrectomy. Patient is doing quite well. Her GERD is minimal will be observed. She'll follow-up in 3 months. Bariatric Checklist Checklist: Plan: Checklist: EGD: 1. Hiatal hernia: 2. H. Pylori: HgbA1c: Vitamin D: Smoking: Former smoker Primary care physician referral: dr chavis Psychiatry clearance: Cardiology clearance: Sleep study: Diet journal: VTE risk score: VTE risk level: Rehab needs at discharge:
== END | disposition home or self-care (01) ==
LOC: BARWHC3 14:12
PROVIDERS: ATTEND Surgery
DX: Z09 Encounter for follow-up examination after completed treatment for conditions other than malignant neoplasm (principal); K21.9 Gastro-esophageal reflux disease without esophagitis; E66.01 Morbid (severe) obesity due to excess calories; Z98.84 Bariatric surgery status; Z98.890 Other specified postprocedural states; Z90.49 Acquired absence of other specified parts of digestive tract; Z98.51 Tubal ligation status; Z87.891 Personal history of nicotine dependence; Z68.23 Body mass index [BMI] 23.0-23.9, adult
CPT/HCPCS: 97803; G0463; 99211